=== PATIENT | male | born 1995 | race African-American/Black ===

== ENCOUNTER 2019-02-28 23:53 | Emergency (ER) | payer MEDICAID ==
[~2019-02-28] VITALS: Ht 182.9 cm; Wt 75.0 kg
[2019-03-01] MEDS ORDERED: KETOROLAC 30MG/ML VIAL IV STA (00:28)
[2019-03-01] MEDS ORDERED: TETANUS, DIPHTHERIA, PERTUSSIS VAC/PF 0.5ML (>7YR OLD) IM ONE (00:30)
[2019-03-01] MEDS ORDERED: CEFAZOLIN 1000MG PREMIX 50 ML IV ONE (00:30)
[2019-03-01 01:13] LABS: CHLORIDE 108 mEq/L (98-107)
[2019-03-01 01:14] LABS: BASOPHILS % 0.8 % (0.0-2.0); EOSINOPHILS % 2.1 % (0.0-5.0); HEMATOCRIT. 44.7 % (42.0-52.0); HEMOGLOBIN. 14.9 g/dL (14.0-18.0); LYMPHOCYTES % 44.3 % (20.0-50.0); MEAN CORPUSCULAR HEMOGLOBIN 27.9 pg (28.0-32.0); MEAN CORPUSCULAR VOLUME 83.8 fL (80.0-94.0); MEAN PLATELET VOLUME 9.7 fl (7.4-10.4); MONOCYTES % 14.5 % (2.0-8.0); NEUTROPHILS % 38.3 % (40.0-76.0); PLATELET 184 x1000/uL (130-400); RED BLOOD CELL COUNT 5.34 mill/uL (4.7-6.1); RED CELL DISTRIBUTION WIDTH 13.6 % (11.6-14.6)
[2019-03-01] MEDS ORDERED: IOHEXOL-300 100 ML BOTTLE ONE (01:52)
[2019-03-01 03:28] LABS: CLARITY URINE CLEAR (CLEAR); COLOR URINE YELLOW (YELLOW); KETONES URINE NEGATIVE (NEGATIVE); LEUKOCYTE ESTERASE URINE NEGATIVE (NEGATIVE); NITRITE URINE NEGATIVE (NEGATIVE); OCCULT BLOOD URINE NEGATIVE (NEGATIVE); PH URINE 5.5 (4.5-8.0); PROTEIN URINE NEGATIVE (NEGATIVE); SPECIFIC GRAVITY URINE 1.065 (1.005-1.030)
[2019-03-01 03:31] VITALS: BP 125/72
== END 2019-03-01 03:34 | disposition home or self-care (01) ==
LOC: ER 23:53
DX: S50.812A Abrasion of left forearm, initial encounter (principal); S00.81XA Abrasion of other part of head, initial encounter; R91.1 Solitary pulmonary nodule; F17.200 Nicotine dependence, unspecified, uncomplicated; R06.02 Shortness of breath; R10.32 Left lower quadrant pain; R10.31 Right lower quadrant pain; Y08.89XA Assault by other specified means, initial encounter; Y93.89 Activity, other specified; Y92.89 Other specified places as the place of occurrence of the external cause; Y99.8 Other external cause status
CPT/HCPCS: 36415; 71045; 71260; 74177; 80053; 81003; 83690; 85025; 86850; 86900; 86901; 90471; 90715; 96365; 96375; 99284; J0690; J1885; Q9967; Z7610

== ENCOUNTER 2024-12-12 19:43 | Emergency (ER) | payer MEDICAID ==
[~2024-12-12] VITALS: Ht 180.3 cm; Wt 91.0 kg
[2024-12-12 20:05] VITALS: TEMP 37.1; O2SAT 99
[2024-12-12 22:32] VITALS: BP 116/91; PULSE 82; RESP 18
[2024-12-12] MEDS: KETOROLAC 30MG/ML VIAL IM ONE (22:32)
[2024-12-12] MEDS: DEXAMETHASONE 4MG/ML 1ML VIAL IV ONE (22:32)
[2024-12-12] MEDS ORDERED: IBUP-2030 MT (22:40)
[2024-12-12] MEDS ORDERED: AMOX1TAB16 MT (22:40)
== END 2024-12-12 23:04 | disposition home or self-care (01) ==
LOC: ER 19:43
DX: K01.1 Impacted teeth (principal); H66.91 Otitis media, unspecified, right ear
CPT/HCPCS: 96372; 99283; J1100; J1885; Z7610

== ENCOUNTER 2025-02-14 14:40 | Emergency (ER) | payer MEDICAID ==
[~2025-02-14] VITALS: Ht 170.2 cm; Wt 85.0 kg
[~2025-02-14 14:40] MED LIST: AMOX1TAB16 MT; IBUP-2030 MT
[2025-02-14 14:43] VITALS: O2SAT 100
[2025-02-14] MEDS ORDERED: LORAZEPAM 2MG/ML INJ IV ONE (15:00)
[2025-02-14] MEDS: LORAZEPAM 2MG/ML UD SYRINGE IV NR (15:34)
[2025-02-14] MEDS: SODIUM CHLORIDE 0.9% 1,000 ML IV ONE (15:35)
[2025-02-14 15:37] LABS: BASOPHILS % 0.9 % (0.0-2.0); EOSINOPHILS % 1.5 % (0.0-5.0); HEMATOCRIT. 44.1 % (42.0-52.0); HEMOGLOBIN. 14.3 g/dL (14.0-18.0); LYMPHOCYTES % 32.7 % (20.0-50.0); MEAN CORPUSCULAR HEMOGLOBIN 27.5 pg (28.0-32.0); MEAN CORPUSCULAR HGB CONC 32.5 g/dL (31.0-37.0); MEAN CORPUSCULAR VOLUME 84.5 fL (80.0-94.0); MEAN PLATELET VOLUME 9.8 fl (7.4-10.4); MONOCYTES % 9.1 % (2.0-8.0); NEUTROPHILS % 55.8 % (40.0-76.0); PLATELET 189 x1000/uL (130-400); RED BLOOD CELL COUNT 5.22 mill/uL (4.7-6.1); RED CELL DISTRIBUTION WIDTH 13.6 % (11.6-14.6); WHITE BLOOD COUNT 6.5 x1000/uL (4.5-11.0)
[2025-02-14 15:41] LABS: CHLORIDE 107 mEq/L (98-107); POTASSIUM 4.5 mEq/L (3.5-5.1); SODIUM 139 mEq/L (136-145)
[2025-02-14 15:42] LABS: CARBON DIOXIDE 27 mEq/L (21-32)
[2025-02-14 15:43] LABS: CALCIUM 8.9 mg/dL (8.7-10.4)
[2025-02-14 15:48] LABS: CREATININE 0.9 mg/dL (0.6-1.3); GLUCOSE 87 mg/dL (70-105); UREA NITROGEN BLOOD 9 mg/dL (9-23)
[2025-02-14 16:01] LABS: TROPONIN I HIGH SENSITIVITY < 4 ng/L (3.0-53)
[2025-02-14 16:59] LABS: CLARITY URINE CLEAR (CLEAR); COLOR URINE YELLOW (YELLOW); GLUCOSE URINE NEGATIVE (NEGATIVE); KETONES URINE NEGATIVE (NEGATIVE); LEUKOCYTE ESTERASE URINE NEGATIVE (NEGATIVE); NITRITE URINE NEGATIVE (NEGATIVE); OCCULT BLOOD URINE NEGATIVE (NEGATIVE); PH URINE 5.5 (4.5-8.0); PROTEIN URINE NEGATIVE (NEGATIVE); SPECIFIC GRAVITY URINE 1.022 (1.005-1.030); UROBILINOGEN URINE 0.2 E.U./dL (0.2-1.0)
[2025-02-14 17:14] LABS: *AMPHETAMINES SCREEN URINE NEGATIVE (NEGATIVE); *BARBITURATES SCREEN URINE NEGATIVE (NEGATIVE); *BENZODIAZEPINES SCREEN URINE NEGATIVE (NEGATIVE); *COCAINE SCREEN URINE PRESUMPTIVE POSITIVE (NEGATIVE); CANNABINOID URINE SCREEN PRESUMPTIVE POSITIVE (NEGATIVE); ECSTASY MDMA SCREEN URINE NEGATIVE (NEGATIVE); METHADONE URINE SCREEN NEGATIVE (NEGATIVE); OPIATES URINE SCREEN NEGATIVE (NEGATIVE); PHENCYCLIDINE URINE SCREEN NEGATIVE (NEGATIVE)
[2025-02-14 18:09] VITALS: BP 130/80; PULSE 70; RESP 16; TEMP 37.1; O2SAT 100
== END 2025-02-14 18:09 | disposition home or self-care (01) ==
LOC: ER 14:51
DX: R00.2 Palpitations (principal); F12.90 Cannabis use, unspecified, uncomplicated; J45.909 Unspecified asthma, uncomplicated; Z79.899 Other long term (current) drug therapy
CPT/HCPCS: 99285; 96374; 71045; 96361; 80305; 80048; 85025; 84484; 36415; 93005; 81003; J2060; J7030